=== PATIENT | female | born 1945 | race Asian ===

== ENCOUNTER 2018-05-31 15:04 | Emergency (ER) | payer MEDICARE ==
[~2018-05-31] VITALS: Ht 162.6 cm; Wt 54.4 kg
[2018-05-31 15:05] VITALS: BP_SYST 113
--- NOTE | 2018-05-31 15:05 | NUR ---
BROUGHT IN BY [facility], PLACED IN BED #2 AND TRIAGED. REPORT GIVEN TO JARRELL
[2018-05-31] MEDS ORDERED: NACL 0.9% 1,000 ML IV ONE (15:08)
--- NOTE | 2018-05-31 15:10 | NUR ---
Pt presents to ER c/o R thigh pain 5/10 on pain scale. Pt states she was gardening at home when she attempted to sit down for a moment, during which she felt and heared a pop in her R thigh and felt instant pain 10/10. Pt states that R thigh began to swell immediately. Upon arrival to ER, pt's R thigh immobilized in traction, 16G IV on LAC, vital signs stable. Pt AOX4, speaking full sentences, no signs of acute distress.
--- NOTE | 2018-05-31 15:10 | NUR ---
Pt reportedly received 12mg of morphine on the field.
--- NOTE | 2018-05-31 15:20 | NUR ---
ER at bedside examining patient.
[2018-05-31 15:41] LABS: BASOPHILS # (AUTO) 0.1 K/uL (0.0-0.2); BASOPHILS % (AUTO) 1.6 % (0.0-2.0); EOSINOPHILS # (AUTO) 0.2 K/uL (0.0-0.4); EOSINOPHILS % (AUTO) 2.8 % (0.0-4.0); HEMOGLOBIN 12.9 g/dL (12.0-16.0); LYMPHOCYTES % (AUTO) 22.6 % (20.5-51.5); MEAN CORPUSCULAR HEMOGLOBIN 32 pg (27-31); MEAN CORPUSCULAR HGB CONC 34 % (32-36); MEAN CORPUSCULAR VOLUME 94 fL (79.0-98.0); MONOCYTES # (AUTO) 0.6 K/uL (0.0-1.0); MONOCYTES % (AUTO) 6.7 % (1.7-9.3); NEUTROPHILS % (AUTO) 66.3 % (40.0-70.0); PLATELET COUNT (AUTO) 269 K/uL (130-430); RED BLOOD CELL COUNT(AUTO) 4.06 MIL/uL (4.2-6.2); RED CELL DISTRIBUTION WIDTH 12.6 % (9.0-15.0); WHITE BLOOD COUNT (AUTO) 8.9 K/uL (4.8-10.8)
[2018-05-31 15:58] LABS: ANION GAP 10 (5-15); CALCIUM 9.2 mg/dL (8.4-11.0); CHLORIDE 103 mmol/L (98-107); GLUCOSE 123 mg/dL (70-99); POTASSIUM 4.2 mmol/L (3.5-5.1); SODIUM SERUM 136 mmol/L (136-145); UREA NITROGEN, BLOOD 21 mg/dL (8-21)
[2018-05-31 16:01] LABS: PROTHROMBIN TIME 9.9 SECS (9.5-12.5)
[2018-05-31 16:02] LABS: ALANINE AMINOTRANSFERASE 24 U/L (12-78); ALBUMIN 3.6 g/dL (3.4-4.8); ASPARTATE AMINOTRANSFERASE 19 U/L (10-37); LIPASE 256 U/L (73-393); TOTAL BILIRUBIN 0.4 mg/dL (0.0-1.0)
--- NOTE | 2018-05-31 16:44 | NUR ---
Patient to be transferred to [facility] ER. Is being transferred due to higher level of care. Receiving facility has accepting physician and available space. ER physician has signed transfer form. Patient or responsible constitution party has agreed to transfer and signed form. Patient belongings inventoried and will be sent with patient. Copy of nursing notes, lab reports, EKG, Physicians Orders and X-rays to be sent with patient. Report called to NURSING at receiving facility. Receiving physician is DR REYEZ. [facility] ETA is [phone]. REPORT TO BE CALLED TO
--- NOTE | 2018-05-31 17:25 | NUR ---
Report given to Melonie TEJADA from [facility].
[2018-05-31 17:34] VITALS: BP_SYST 115
--- NOTE | 2018-05-31 17:34 | NUR ---
[facility] ambulance [facility] arrived to take pt to [facility]. Vital signs upon transfer are as follows: 114/62, HR 64, O2 98% ON ROOM AIR, RR 14, T 97.9, PAIN 2/10. Pt to be admitted under the care of Dr. Awad.
== END 2018-05-31 17:34 | disposition short-term general hospital (02) ==
LOC: SED 15:04
DX: S72.301A Unspecified fracture of shaft of right femur, initial encounter for closed fracture (principal); X50.9XXA Other and unspecified overexertion or strenuous movements or postures, initial encounter; Y93.89 Activity, other specified; Y92.89 Other specified places as the place of occurrence of the external cause; Y99.8 Other external cause status
CPT/HCPCS: 36415; 71045; 73552; 80053; 82550; 83690; 84484; 85025; 85610; 85730; 93005; 99285; J7030